=== PATIENT | male | born 1995 | race Caucasian/White ===

== ENCOUNTER 2018-06-10 05:35 | Emergency (ER) | payer BC ==
[~2018-06-10] VITALS: Ht 180.3 cm; Wt 67.2 kg
[2018-06-10] MEDS ORDERED: ondansetron 4mg rapidly disintigrating tab PO ONE (06:50)
[2018-06-10] MEDS ORDERED: HYDROcodone/acetaminophen 5mg/325mg tablet PO ONE (06:50)
[2018-06-10] MEDS ORDERED: acetaminophen 325mg tablet PO ONE (06:50)
[2018-06-10] MEDS ORDERED: ketorolac trometh inj. 60 MG/2 ML VIAL IM ONE (06:50)
[2018-06-10] MEDS ORDERED: LIDOcaine 5% patch TP ONE (06:50)
[2018-06-10] MEDS ORDERED: ACET-2615 PO (06:53)
[2018-06-10] MEDS ORDERED: HYDR-3965 PO (06:53)
[2018-06-10] MEDS ORDERED: LIDO700A32 TOP (06:53)
[2018-06-10] MEDS ORDERED: IBUP-1985 PO (06:53)
[2018-06-10 07:25] VITALS: BP 132/84
== END 2018-06-10 07:26 | disposition home or self-care (01) ==
LOC: ER 05:36
DX: M25.512 Pain in left shoulder (principal); R07.81 Pleurodynia; M79.18 Myalgia, other site; Z79.899 Other long term (current) drug therapy; Z88.0 Allergy status to penicillin; W01.0XXA Fall on same level from slipping, tripping and stumbling without subsequent striking against object, initial encounter; Y93.89 Activity, other specified; Y92.89 Other specified places as the place of occurrence of the external cause; Y99.8 Other external cause status
CPT/HCPCS: 71046; 96372; 99284; J1885

== ENCOUNTER 2022-11-01 23:00 | Emergency (ER) | payer SELFPAY ==
[~2022-11-01] VITALS: Ht 172.7 cm; Wt 79.5 kg
[~2022-11-01 23:00] MED LIST: IBUP-1985 PO; LIDO700A32 TOP
[2022-11-01 23:04] VITALS: BP 136/80; PULSE 107; RESP 18; TEMP 98.1; O2SAT 97
== END 2022-11-01 23:35 ==
LOC: ER 23:01
DX: R45.88 Nonsuicidal self-harm (principal); Z88.0 Allergy status to penicillin; Z79.1 Long term (current) use of non-steroidal anti-inflammatories (NSAID)
CPT/HCPCS: 99283

== ENCOUNTER 2024-07-11 18:38 | Emergency (ER) | payer MEDICAID ==
[~2024-07-11] VITALS: Ht 182.9 cm; Wt 65.2 kg
[2024-07-11 18:41] VITALS: BP 156/93; PULSE 117; RESP 18; O2SAT 98
--- NOTE | 2024-07-11 19:38 | Physician Documentation ---
History of Present Illness ~ Chief Complaint: Laceration Stated Complaint: FINGER LAC Time Seen by MD: 19:04 HPI The patient is seen today with complaints of suffering a laceration to his left index finger from a skill saw. Patient states a [employer] did have a safety blade. In place that likely saved his finger. Patient has no other concern or complaint at this time. Patient states the bleeding has been controlled after applying direct pressure. Patient states this accident happened just prior to arrival. He has no other concern or complaint at this time. Tetanus Within 5 Years: Yes Medication Reconciliation Allergies: Coded Allergies: Penicillins (Verified Allergy, Unknown, 07/11/24) Scheduled Ibuprofen (Ibuprofen), 1 TAB PO Q6H Lidocaine (Lidoderm), 1 PATCH TOP DAILY Review of Systems Constitutional: Denies: chills, fever, weakness Eyes: Denies: pain, blurred vision ENT: Denies: ear pain, nose pain, throat pain, mouth pain Respiratory: Denies: cough, shortness of breath Cardiovascular: Denies: chest pain, palpitations Gastrointestinal: Denies: abdominal pain, nausea, vomiting Genitourinary: Denies: burning, dysuria Male Genitalia: Denies: penile discharge, testicular pain Neurological: Denies: headache, dizziness Musculoskeletal: Denies: pain, swelling Integumentary: Denies: rash, lesions Allergic/Immunologic: Denies: hives, itching Hematologic/Lymphatic: Denies: no symptoms reported Psychiatric: Denies: depression, anxiety Physical Exam Vital Signs: Temperature: 99.0, Source: Temporal, Heart Rate: 117, Respiratory Rate: 18, BP: 156/93, Pulse Oximetry: 98, Weight: 65.150 Physical Exam General: Awake and Alert, no acute distress. HEENT: Conjunctiva pink, Sclera clear, Mucus Membranes moist. Neck: Supple without masses and tenderness. Resp: Unlabored. Lungs clear to auscultation bilaterally. Heart: Regular Rate and rhythm, normal S1 and S2 without murmur, rub or gallop. Musculoskeletal: Patient on exam has 3 cm laceration to his left index finger at the level of the middle phalanx on the radial aspect. Patient is neurovascularly intact distally. Patient has light touch sensation intact distally of the left index finger on the radial and ulnar aspects. Bleeding is controlled currently. Extremities: No cyanosis,clubbing or edema. Skin: Warm and Dry. Progress Results/Orders Results/Orders Orders - СЕРГЕЙ DELEON PAC Hand, Complete (3vw Min) (07/11/24 18:44) Completed Orders - СЕРГЕЙ DELEON PAC Hand, Complete (3vw Min) (07/11/24 18:44) Lidocaine 1% 30ml Vial (Xylocaine 1% Via (07/11/24 19:38) Vital Signs 07/11/24 18:41 Temp 99.0 Pulse 117 Resp 18 B/P (MAP) 156/93 Pulse Ox 98 EKG/XRAY/CT/US/VASC/MRI Bone/Soft Tissue X-Ray (Ext.) : Additional Comment X-ray of left hand interpreted by myself today shows no sign of fracture, no osteolytic or blastic lesions, bones in anatomic alignment. Sign of soft tissue injury. Medical Decision Making Findings The patient is seen today with complaints of suffering a laceration to his left index finger from a skill saw. Patient states a [place] did have a safety blade. In place that likely saved his finger. Patient has no other concern or complaint at this time. Patient states the bleeding has been controlled after applying direct pressure. Patient states this accident happened just prior to arrival. He has no other concern or complaint at this time. Patient tolerated suture repair of laceration to left index finger well. Patient will return in seven days for suture removal either here at the ER or make an appointment with his primary care. Patient will monitor for signs of infection. Patient will return to ED with any worsening, concerning or changing symptoms. Differential Dx:Considerations: Include: Abrasion, Avulsion, Contusion, Laceration, Fracture, Hematoma, Neurovascular injury, Retained foreign body, Other Departure Disposition: 01 HOME / SELF CARE / HOMELESS Impression: Primary Impression: Laceration Condition: Improved Discharge Instructions: Laceration Care, Adult, [id number] Additional Instructions: Patient tolerated suture repair of laceration to left index finger well. Patient will return in seven days for suture removal either here at the ER or make an appointment with his primary care. Patient will monitor for signs of infection. Patient will return to ED with any worsening, concerning or changing symptoms. Referrals: NO PRIMARY CARE PROVIDER (PCP) Signature Scribe Signature: No Scribe Attestation: No scribe СЕРГЕЙ DELEON July 11, 2024 19:38
[2024-07-11] MEDS: LIDOcaine 1% 30ml preserv. free vial IJ STA (20:11)
[2024-07-11 22:09] VITALS: TEMP 99
--- NOTE | 2024-07-12 09:30 | RADIOLOGY REPORT ---
EXAM: DI HAND, COMPLETE (3VW MIN) CLINICAL INDICATION: LACERATION TECHNIQUE: DI HAND, COMPLETE (3VW MIN) Comparison: None FINDINGS/IMPRESSION: There is no evidence of acute fracture or dislocation. Soft tissue laceration about the 2nd digit
== END 2024-07-11 21:45 | disposition home or self-care (01) ==
LOC: ER 18:39
DX: S61.211A Laceration without foreign body of left index finger without damage to nail, initial encounter (principal); Z88.0 Allergy status to penicillin; Z79.899 Other long term (current) drug therapy; W27.0XXA Contact with workbench tool, initial encounter; Y93.89 Activity, other specified; Y92.89 Other specified places as the place of occurrence of the external cause; Y99.8 Other external cause status
CPT/HCPCS: 12002; 73130; 99283; A6222; A6258; A6446